=== PATIENT | female | born 2000 | race Hispanic/Latino ===

== ENCOUNTER 2022-03-06 22:10 | Emergency (ER) | payer SELFPAY ==
[2022-03-06 22:54] VITALS: BP 119/70
--- NOTE | 2022-03-07 11:47 | Electrocardiograph Report ---
[facility] Test Date: 2022-03-06 Test Time: 22:45:10 Pat Name: GRIS BRITO Department: Room: Gender: F [place] [employer] Operator: COLEEN : 2000 Requested By: JONATHAN ANDRADE Order Number: [id number] Reading MD: Bernard Jansen Measurements Intervals Adger Rate: 68 P: 24 SC: 140 QRS: 42 QRSD: 80 T: 27 QT: 384 QTc: 408 Interpretive Statements Sinus rhythm No previous ECG available for comparison Electronically Signed On 03-07-2022 11:47:18 EDT by Bernard Jansen
== END 2022-03-07 01:30 | disposition left against medical advice (07) ==
LOC: ED 22:10
DX: T78.40XA Allergy, unspecified, initial encounter (principal); Z53.21 Procedure and treatment not carried out due to patient leaving prior to being seen by health care provider; X58.XXXA Exposure to other specified factors, initial encounter
CPT/HCPCS: 93005